=== PATIENT | male | born 1935 | race Caucasian/White ===

== ENCOUNTER 2020-04-02 15:08 | Emergency (ER) | payer MEDICARE, MEDICAID ==
[~2020-04-02] VITALS: Ht 172.7 cm; Wt 60.0 kg
[2020-04-02 15:26] VITALS: BP 93/50
--- NOTE | 2020-04-02 16:48 | NUR ---
KIM Carrillo at bedside.
[2020-04-02] MEDS ORDERED: DOCU100C38 PO (19:41)
== END 2020-04-02 19:57 | disposition home or self-care (01) ==
LOC: ER 15:08
DX: K59.00 Constipation, unspecified (principal); R41.0 Disorientation, unspecified; W06.XXXA Fall from bed, initial encounter; M25.512 Pain in left shoulder; M25.552 Pain in left hip; Z88.0 Allergy status to penicillin; Z79.899 Other long term (current) drug therapy; Y93.89 Activity, other specified; Y92.89 Other specified places as the place of occurrence of the external cause; Y99.8 Other external cause status
CPT/HCPCS: 70450; 72125; 73030; 73502; 73700; 99285